=== PATIENT | male | born 1945 | race Asian ===

== ENCOUNTER 2022-08-30 20:22 | Inpatient (IN) ==
--- NOTE | 2022-08-30 20:39 | Emergency Department Note ---
Impression & Plan Hypertension, Hyponatremia ED Provider Note NAME: JOSÉ MIGUEL HORN AGE: 77 SEX: M : 1945 ARRIVES VIA: Ambulance INFORMANT: Patient, ED PROVIDER(S): Asael Barahona MD CHIEF COMPLAINT: High blood pressure, feeling unwell MEDICAL DECISION MAKING: Patient presents with his son at bedside due to concern for feeling generally unwell and was noted to be hypertensive and nauseous. The patient did have blood work completed along with an EKG troponin COVID swab. Patient was ordered IV fluids. Patient had initially declined having any headache but subsequently did and thus a CT of the head was ordered. I did speak with the radiologist who stated this was negative. I did speak the on-call hospitalist service given the patient's hyponatremia and hypertension. The patient was admitted by Dr. Lozoya Prior /Outside records reviewed: None Differential diagnosis: Infection, dehydration, metabolic abnormality, hypo/hyperglycemia, electrolyte disturbance, anemia, hypoxia, cardiac sources, intracerebral event, toxicologic, neurologic, as well as other pathologies. Diagnostics, as interpreted by me: ECG: Sinus, rate of 65, normal intervals normal axis no ST elevations Cardiac monitoring: An order was placed for continuous cardiac monitoring. The monitor shows a rate of 72 with sinus rhythm. Patient was placed on pulse oximetry Medical decision rules: none Imaging studies: See below I informally reviewed the patient's CT of the head noncontrast which showed no obvious ICH HPI: Patient presents due to concern for weakness fatigue and associated nausea. The patient was reportedly returning home from the [facility] as they had just spent the night there were driving home. The patient states that he did not feel well and has associated nausea. They checked his blood pressure and his blood pressure was greater than 200 he did receive his home losartan as well as his Zofran. The patient is a type II diabetic on metformin and his sugar was in the 100s. No reported falls or trauma. The patient denies any headache or neck pain no recent falls or trauma. PAST MEDICAL HISTORY: See Below PAST SURGICAL HISTORY: See Below SOCIAL HISTORY: See Below HOME MEDICATIONS: See Below ALLERGIES: See Below VITALS: See Below PHYSICAL EXAMINATION: GENERAL: NAD, wearing a mask, non-toxic. EYE EXAM: Normal conjunctiva. PERRL, no anisocoria and EOM's grossly intact w/o pain. NECK: Supple, no nuchal rigidity, no adenopathy, non-tender. No signs of meningismus. FROM of the neck with good chin to chest and neck extension. No stridor. LUNGS: Clear to auscultation. Normal chest wall mechanics. HEART: NSR, no MRG. ABDOMEN: Abdomen soft, non-tender, no masses, no rebound or guarding. BACK: No CVA TTP. SKIN: No rashes and no bruising. UPPER EXTREMITIES: Upper extremities are grossly normal. LOWER EXTREMITIES: Grossly normal, no edema. NEURO EXAM: A&O x3, cranial nerves II-XII grossly intact, normal speech, moves all 4 extremities. Past Med/Surg History Medical History Diabetes mellitus NIDDM Hyperlipidemia Hypertension Surgical History History of cataract surgery RT No history of previous surgery Family History Father Diabetes Other No family history of adverse response to anesthesia Social History Smoking Status: Never smoker Second Hand Exposure: No; Do You Dip or Chew Tobacco: No; Hx Alcohol Use: Yes Alcohol type: beer Hx Substance Use: No Preferred Language: Portuguese Communication Ability: Effective Student Admissions Clerk Required: No Beliefs That Will Affect Care: None marital status: Current Living Situation: Spouse and Family Current Living Situation Comment: DAUGHTER AND How many Children do You have: 3 Other Information That Helps Us Care for You: No Feels Safe at Home: Yes Safety Concerns: Feels Safe At This Time Diet: diabetic during the past year weight has: remained stable Assistive Devices: None Allergies Allergies Allergy/AdvReac Type Severity Reaction Status Date / Time No Known Allergies Allergy Verified 08/31/22 00:33 Home Meds Home Medications Medication Instructions Recorded Confirmed metformin 500 mg tablet 500 mg PO QAM 01/13/19 08/31/22 losartan 25 mg tablet 25 mg PO QAM 04/04/21 08/31/22 rosuvastatin 5 mg tablet (Crestor) 5 mg PO QAM 04/04/21 08/31/22 Previous Rx's Medication Instructions Recorded furosemide 20 mg tablet (Lasix) 10 mg PO DAILY #30 tabs 05/02/23 potassium chloride 10 mEq 10 meq PO BID17 30 days #30 tabs 09/01/22 tablet,extended release(part/cryst) Results & Data (ED) Vital Signs Vital Signs - 24 hr 08/30/22 20:24 Temperature 36.8 C Temperature Source Temporal Artery Scan Pulse Rate 68 Respiratory Rate 20 Respiratory Effort / Characteristics Non-Labored Spontaneous Respiratory Depth Normal Blood Pressure 180/94 H Blood Pressure Mean 122 Pulse Oximetry 91 Oxygen Delivery Method Room Air Sepsis Recent Fever Within 48 Hours No Sepsis New/Unexplained Change in Mental Status N/A Sepsis Action Taken by Nursing No Action Required Home Medications Current Medication List: was personally reviewed by me Laboratory Data Attestation: I reviewed the patient's lab results. 09/01/22 07:33 09/01/22 07:33 Lab Results 08/30/22 08/30/22 08/30/22 Range/Units 20:55 20:55 20:55 WBC 8.03 (4.8-10.8) K/ul RBC 5.20 (4.70-6.10) M/uL Hgb 13.2 L (14.0-18.0) g/dl Hct 39.5 L (42.0-52.0) % MCV 76.0 L (80.0-100.0) fL MCH 25.4 (25.0-34.0) pg MCHC 33.4 (32.0-36.0) g/dL RDW Std Deviation 40.0 (36.4-46.3) fL RDW Coeff of Hillary 14.6 H (11.5-14.5) % Plt Count 183 (130-400) K/uL MPV 9.2 L (9.4-12.4) fL Immature Gran % (Auto) 0.4 % Neut % (Auto) 62.5 % Lymph % (Auto) 26.3 % [place] % (Auto) 9.5 % Eos % (Auto) 0.9 % Baso % (Auto) 0.4 % Neut # (Auto) 5.03 (1.40-6.50) K/uL Lymph # (Auto) 2.11 (1.2-3.4) K/uL [place] # (Auto) 0.76 H (0.11-0.59) K/uL Eos # (Auto) 0.07 (0-0.50) K/uL Baso # (Auto) 0.03 (0-0.2) K/uL Immature Gran # (Auto) 0.03 (0.01-0.20) K/uL Sodium 128 L (136-145) mmol/L Potassium 3.7 (3.5-5.1) mmol/L Chloride 91 L (98-107) mmol/L Carbon Dioxide 24 (21-32) mmol/L Anion Gap 13 H (3-11) BUN 12 (6-23) mg/dl Creatinine 0.64 (0.6-1.4) mg/dl Est Cr Clr Drug Dosing Not Reportable Est GFR ( Amer) 111.0 ml/min Est GFR (Non-Af Amer) 95.8 ml/min BUN/Creatinine Ratio 18.8 (10-20) Glucose 157 H (70-99(Fasting)) mg/dl Calcium 9.6 (8.6-10.3) mg/dl Magnesium 1.7 (1.7-2.4) mg/dl Total Bilirubin 1.1 H (0.2-1.0) mg/dl AST 23 (13-39) U/L ALT 27 (7-52) U/L Alkaline Phosphatase 48 (34-104) U/L Troponin I High Sens 5.8 (0-20) pg/ml Total Protein 8.3 (6.0-8.3) gm/dl Albumin 4.5 (3.4-5.0) gm/dl Globulin 3.8 (2.5-4.0) gm/dl Albumin/Globulin Ratio 1.2 (0.9-2) TSH 0.666 (0.300-4.500) uIu/ml Urine Color Urine Appearance (Clear) Urine pH (4.5-7.5) Ur Specific [place] (1.000-1.030) Urine Protein (Negative) Urine Glucose (UA) (Negative) Urine Ketones (Negative) Urine Blood (Negative) Urine Nitrite (Negative) Urine Bilirubin (Negative) Urine Urobilinogen (Negative) Ur Leukocyte Esterase (Negative) Urine WBC (Auto) (0-5) /hpf Urine RBC (Auto) (0-4) /hpf U Hyaline Cast (Auto) (0-5) /lpf U Epithel Cells (Auto) (0-5) /lpf Urine Bacteria (Auto) (Negative) SARS-CoV-2, RNA, NAAT (NEGATIVE) 08/30/22 08/30/22 Range/Units 20:55 21:24 WBC (4.8-10.8) K/ul RBC (4.70-6.10) M/uL Hgb (14.0-18.0) g/dl Hct (42.0-52.0) % MCV (80.0-100.0) fL MCH (25.0-34.0) pg MCHC (32.0-36.0) g/dL RDW Std Deviation (36.4-46.3) fL RDW Coeff of Hillary (11.5-14.5) % Plt Count (130-400) K/uL MPV (9.4-12.4) fL Immature Gran % (Auto) % Neut % (Auto) % Lymph % (Auto) % [place] % (Auto) % Eos % (Auto) % Baso % (Auto) % Neut # (Auto) (1.40-6.50) K/uL Lymph # (Auto) (1.2-3.4) K/uL [place] # (Auto) (0.11-0.59) K/uL Eos # (Auto) (0-0.50) K/uL Baso # (Auto) (0-0.2) K/uL Immature Gran # (Auto) (0.01-0.20) K/uL Sodium (136-145) mmol/L Potassium (3.5-5.1) mmol/L Chloride (98-107) mmol/L Carbon Dioxide (21-32) mmol/L Anion Gap (3-11) BUN (6-23) mg/dl Creatinine (0.6-1.4) mg/dl Est Cr Clr Drug Dosing Est GFR ( Amer) ml/min Est GFR (Non-Af Amer) ml/min BUN/Creatinine Ratio (10-20) Glucose (70-99(Fasting)) mg/dl Calcium (8.6-10.3) mg/dl Magnesium (1.7-2.4) mg/dl Total Bilirubin (0.2-1.0) mg/dl AST (13-39) U/L ALT (7-52) U/L Alkaline Phosphatase (34-104) U/L Troponin I High Sens (0-20) pg/ml Total Protein (6.0-8.3) gm/dl Albumin (3.4-5.0) gm/dl Globulin (2.5-4.0) gm/dl Albumin/Globulin Ratio (0.9-2) TSH (0.300-4.500) uIu/ml Urine Color Yellow Urine Appearance Clear (Clear) Urine pH 7.5 (4.5-7.5) Ur Specific [place] 1.011 (1.000-1.030) Urine Protein Trace H (Negative) Urine Glucose (UA) Negative (Negative) Urine Ketones Negative (Negative) Urine Blood Negative (Negative) Urine Nitrite Negative (Negative) Urine Bilirubin Negative (Negative) Urine Urobilinogen Negative (Negative) Ur Leukocyte Esterase Negative (Negative) Urine WBC (Auto) 0 (0-5) /hpf Urine RBC (Auto) 0-4 (0-4) /hpf U Hyaline Cast (Auto) 0 (0-5) /lpf U Epithel Cells (Auto) 0-5 (0-5) /lpf Urine Bacteria (Auto) Negative (Negative) SARS-CoV-2, RNA, NAAT NEGATIVE (NEGATIVE) Administered Medications Discontinued Medications Acetaminophen (Acetaminophen 325 Mg Tab) 650 mg PO NOW STA Stop: 08/30/22 22:09 Last Admin: 08/30/22 22:53 Dose: 650 mg Documented By: KRISTEL Acetaminophen (Acetaminophen 325 Mg Tab) 650 mg PO Q4H PRN PRN Reason: Pain or Fever Stop: 09/30/22 01:36 Last Admin: 08/31/22 08:36 Dose: 650 mg Documented By: JENNIFER Aspirin (Aspirin 81 Mg Ectab) [facility] [place]: 09/30/22 08:59 Last Admin: 09/01/22 08:51 Dose: 81 mg Documented By: Admin: 08/31/22 08:06 Dose: 81 mg Documented By: JENNIFER Calcium Carbonate (Calcium Carbonate 500 Mg Chewable Tab) 1,500 mg PO NOW STA Stop: 08/30/22 23:00 Last Admin: 08/30/22 23:04 Dose: 1,500 mg Documented By: KANW Furosemide (Furosemide Inj 20 Mg/2 Ml Vial) 20 mg IV ONE ONE Stop: 08/31/22 08:03 Last Admin: 08/31/22 13:11 Dose: Not Given Documented By: JENNIFER Furosemide (Furosemide Inj 20 Mg/2 Ml Vial) 10 mg IV BID17 [facility] Stop: 09/30/22 08:59 Last Admin: 09/01/22 08:51 Dose: 10 mg Documented By: Admin: 08/31/22 16:50 Dose: 10 mg Documented By: Admin: 08/31/22 09:43 Dose: 10 mg Documented By: JENNIFER Sodium Chloride (Nss) 500 mls @ 999 mls/hr IV .Q31M PATRICE Stop: 08/30/22 21:30 Last Infusion: 08/30/22 21:51 Dose: 0 mls/hr Documented By: Admin: 08/30/22 21:20 Dose: 999 mls/hr Documented By: GISELA Magnesium Sulfate/Dextrose (Magnesium Sulfate / D5w) 1 gm in 100 mls @ 50 mls/hr IV ONE ONE Stop: 08/31/22 02:24 Last Infusion: 08/31/22 03:58 Dose: 0 mls/hr Documented By: Admin: 08/31/22 00:37 Dose: 50 mls/hr Documented By: Sodium Chloride (Nss 1000ml) 1,000 mls @ 75 mls/hr IV .[id number] [facility] Stop: 09/30/22 01:36 Last Infusion: 08/31/22 08:38 Dose: 0 mls/hr Documented By: Admin: 08/31/22 03:28 Dose: 75 mls/hr Documented By: DINA Insulin Aspart (Insulin Aspart Per Unit Charge) 0 units SC ACHS PATRICE Stop: 09/30/22 07:29 Last Admin: 09/01/22 12:22 Dose: Not Given Documented By: Admin: 09/01/22 08:46 Dose: Not Given Documented By: Admin: 08/31/22 20:56 Dose: Not Given Documented By: Admin: 08/31/22 16:49 Dose: 2 units Documented By: JENNIFER Co-signed By: MARTA Admin: 08/31/22 12:13 Dose: Not Given Documented By: Admin: 08/31/22 08:05 Dose: 2 units Documented By: JENNIFER Co-signed By: ALN Losartan Potassium (Losartan Potassium 25 Mg Tab) 25 mg PO QAM PATRICE Stop: 09/30/22 08:59 Last Admin: 09/01/22 08:51 Dose: 25 mg Documented By: Admin: 08/31/22 08:06 Dose: 25 mg Documented By: JENNIFER Ondansetron HCl (Ondansetron Inj 2 Mg/Ml 2 Ml Vial) 4 mg IV NOW STA Stop: 08/30/22 21:18 Last Admin: 08/30/22 21:21 Dose: 4 mg Documented By: GISELA Potassium Chloride (Potassium Chloride Crtab 20 Meq Tabcr) 20 meq PO NOW STA Stop: 08/31/22 08:03 Last Admin: 08/31/22 08:37 Dose: 20 meq Documented By: JENNIFER Potassium Chloride (Potassium Chloride Crtab 20 Meq Tabcr) 20 meq PO BID17 [facility] Stop: 09/30/22 09:59 Last Admin: 09/01/22 08:52 Dose: 20 meq Documented By: Admin: 08/31/22 16:50 Dose: 20 meq Documented By: Admin: 08/31/22 11:27 Dose: 20 meq Documented By: JENNIFER Rosuvastatin Calcium (Rosuvastatin Calcium 5 Mg Tab) 5 mg PO HS PATRICE Stop: 09/30/22 08:59 Last Admin: 08/31/22 20:55 Dose: 5 mg Documented By: DINA Torsemide (Torsemide 10 Mg Tab) 5 mg PO QAM PATRICE Stop: 10/01/22 13:59 Last Admin: 09/01/22 13:33 Dose: Not Given Documented By: KACY Imaging Data Radiologist's Impression: Chest X-Ray 08/30/22 20:51 SINGLE VIEW CHEST CLINICAL HISTORY: Generalized weakness. FINDINGS: An AP, portable, upright chest radiograph is compared to study dated 04/09/2021. The heart is enlarged noting atherosclerotic calcification of the thoracic aorta. There is pulmonary vascular congestion. There is bibasilar atelectasis. The lungs and pleural spaces are otherwise clear. No large pleural effusion or pneumothorax is seen. The skeletal structures are osteopenic. The bony thorax is grossly intact. IMPRESSION: Cardiomegaly with pulmonary vascular congestion. ACT 112: Negative or not required by law. Electronically signed by: Rob López M.D. 08/31/2022 7:[address] 08/30/22 22:08 CR Exam(s): CT HEAD Without Contrast History: Reason for exam: headache, htn, nausea/vomiting. Exam: CT HEAD Without Contrast Technique more: CTDI is 36.71 mGy and DLP is 614.27 mGy-cm. Technique more: Automated exposure control was utilized for the study. A dose lowering technique was utilized adhering to the principles of ALARA. Comparison: FINDINGS: No intracranial hemorrhage, abnormal intra- or extra-axial collections or parenchymal lesions are seen. There are involutional changes with prominence of the sulci, basal cisterns and ventricles. Scattered white matter hypoattenuations are present, likely from small vessel disease. The winters-white differentiation is preserved. No evidence of mass effect, midline shift, or edema. The osseous structures are unremarkable. The visualized portions of the paranasal sinuses are clear. IMPRESSION: 1. No acute intracranial process. 2. Involutional changes with small vessel disease. Communications: Call Doctor Stroke Electronically signed by: Selena Velazquez MD 08/30/22 22:47 PM Discharge Plan Visit Data Chief Complaint: Hypertension Stated Complaint: HYPERTENSION ED Provider: Asael Barahona Discharge Problem: Hypertension, Hyponatremia Patient Disposition: Admitted As Inpatient Condition: Good Discharge Instructions Interventions: ED Discharge Assessment Last Done: 08/31/22 01:04
[2022-08-30] MEDS ORDERED: SODIUM CHLORIDE 0.9% 500 ML IV SCH (21:00)
[2022-08-30] MEDS ORDERED: ONDANSETRON INJ 2 MG/ML 2 ML VIAL IV STA (21:17)
[2022-08-30 21:23] LABS: Appearance Urine Clear (Clear); Bacteria Urine Automated Negative (Negative); Bilirubin Urine Negative (Negative); Blood Urine Negative (Negative); Cast Urine Automated 0 /lpf (0-5); Color Urine Yellow; Epithelial Cell Urine Auto 0-5 /lpf (0-5); Glucose Urine UA Negative (Negative); Ketones Urine Negative (Negative); Leukocyte Esterase Urine Negative (Negative); Nitrite Urine Negative (Negative); RBC Urine Automated 0-4 /hpf (0-4); Specific Gravity Urine 1.011 (1.000-1.030); Urobilinogen Urine Negative (Negative); WBC Urine Automated 0 /hpf (0-5); pH Urine 7.5 (4.5-7.5)
[2022-08-30 21:27] LABS: Protein Urine Trace (Negative)
[2022-08-30 21:38] LABS: Basophils # (auto) 0.03 K/uL (0-0.2); Basophils % (auto) 0.4 %; Eosinophils # (auto) 0.07 K/uL (0-0.50); Eosinophils % (auto) 0.9 %; Hematocrit (blood only) 39.5 % (42.0-52.0); Hemoglobin 13.2 g/dl (14.0-18.0); Immature Granulocytes # (auto) 0.03 K/uL (0.01-0.20); Immature Granulocytes % (auto) 0.4 %; Lymphocytes # (auto) 2.11 K/uL (1.2-3.4); Lymphocytes % (auto) 26.3 %; Mean Corpuscular Hemoglobin 25.4 pg (25.0-34.0); Mean Corpuscular Hgb Conc 33.4 g/dL (32.0-36.0); Mean Platelet Volume 9.2 fL (9.4-12.4); Monocytes # (auto) 0.76 K/uL (0.11-0.59); Monocytes % (auto) 9.5 %; Neutrophils # (auto) 5.03 K/uL (1.40-6.50); Neutrophils % (auto) 62.5 %; Platelet Count 183 K/uL (130-400); RDW Coefficient of Variation 14.6 % (11.5-14.5); White Blood Count 8.03 K/ul (4.8-10.8)
[2022-08-30 21:40] LABS: Alanine Aminotransferase 27 U/L (7-52); Albumin Globulin Ratio 1.2 (0.9-2); Albumin Level 4.5 gm/dl (3.4-5.0); Alkaline Phosphatase 48 U/L (34-104); Anion Gap 13 (3-11); Aspartate Aminotransferase 23 U/L (13-39); BUN Creatinine Ratio 18.8 (10-20); Bilirubin,Total 1.1 mg/dl (0.2-1.0); Blood Urea Nitrogen 12 mg/dl (6-23); Calcium 9.6 mg/dl (8.6-10.3); Carbon Dioxide 24 mmol/L (21-32); Chloride 91 mmol/L (98-107); Est GFR (Non-African American) 95.8 ml/min; Globulin 3.8 gm/dl (2.5-4.0); Glucose 157 mg/dl (70-99(Fasting)); Magnesium 1.7 mg/dl (1.7-2.4); Potassium 3.7 mmol/L (3.5-5.1); Sodium 128 mmol/L (136-145); Total Protein 8.3 gm/dl (6.0-8.3)
[2022-08-30] MEDS ORDERED: ACETAMINOPHEN 325 MG TAB PO STA (22:08)
--- NOTE | 2022-08-30 22:48 | CT Scan Report ---
Exam(s): CT HEAD Without Contrast History: Reason for exam: headache, htn, nausea/vomiting. Exam: CT HEAD Without Contrast Technique more: CTDI is 36.71 mGy and DLP is 614.27 mGy-cm. Technique more: Automated exposure control was utilized for the study. A dose lowering technique was utilized adhering to the principles of ALARA. Comparison: FINDINGS: No intracranial hemorrhage, abnormal intra- or extra-axial collections or parenchymal lesions are seen. There are involutional changes with prominence of the sulci, basal cisterns and ventricles. Scattered white matter hypoattenuations are present, likely from small vessel disease. The winters-white differentiation is preserved. No evidence of mass effect, midline shift, or edema. The osseous structures are unremarkable. The visualized portions of the paranasal sinuses are clear. IMPRESSION: 1. No acute intracranial process. 2. Involutional changes with small vessel disease. Communications: Call Doctor Stroke Electronically signed by: Selena Velazquez MD 08/30/22 22:47 PM
[2022-08-30 22:53] LABS: Troponin I High Sensitivity 5.8 pg/ml (0-20)
[2022-08-30] MEDS ORDERED: CALCIUM CARBONATE 500 MG CHEWABLE TAB PO STA (22:59)
[2022-08-31] MEDS ORDERED: MAGNESIUM SULFATE / D5W 1 GM/100 ML BAG IV ONE (00:25)
[2022-08-31] MEDS ORDERED: ACETAMINOPHEN 325 MG TAB PO PRN (01:37)
[2022-08-31] MEDS ORDERED: LABETALOL HCL IV 5 MG/ML 20ML IV PRN (01:37)
[2022-08-31] MEDS ORDERED: DEXTROSE 50% 50 ML SYRINGE IV PRN (01:37)
[2022-08-31] MEDS ORDERED: ONDANSETRON INJ 2 MG/ML 2 ML VIAL IV PRN (01:37)
[2022-08-31] MEDS ORDERED: NITROGLYCERIN SL 0.4 MG/TAB TAB SL PRN (01:37)
[2022-08-31] MEDS ORDERED: CARBOHYDRATES FOR HYPOGLYCEMIA PO PRN (01:37)
[2022-08-31] MEDS ORDERED: GLUCAGON FOR INJ 1 MG VIAL SQ PRN (01:37)
[2022-08-31] MEDS ORDERED: SODIUM CHLORIDE 0.9% 1000ML 1,000 ML IV SCH (01:37)
[2022-08-31] MEDS ORDERED: GLUCOSE 40% GEL 15 GM TUBE PO PRN (01:37)
[2022-08-31] MEDS ORDERED: POLYETHYLENE (MIRALAX) 17 GM PACK PO PRN (01:37)
[2022-08-31] MEDS ORDERED: GLUCOSE 10 TAB/TUBE PO PRN (01:37)
--- NOTE | 2022-08-31 02:57 | History and Physical Report ---
DATE OF ADMISSION: 08/31/2022 CHIEF COMPLAINT: Hypertensive urgency, nausea, hyponatremia. HISTORY OF PRESENT ILLNESS: A 77-year-old male with past medical history significant for diabetes, hypertension, hyperlipidemia, who comes because of elevated blood pressure at home and nausea and dizziness. The family went for [place]. They were driving back today, last one hour the patient drove. After coming home, the patient says he could not get off of the car, feeling very dizzy and felt as falling down and he was dry heaving and nausea. When they checked the blood pressure, it was in 200s. He takes losartan 25 daily, took extra losartan, checked his blood pressure every few minutes but still it was in 180s and was dry heaving and had a small amount of vomiting and feeling dizzy and was brought in here. He was given Zofran, Tylenol, calcium carbonate and currently the patient is feeling very tired, feeling sleepy. Blood pressure is okay here currently, but when he came in it was in the 180s, then at one point it wasin 160s. Son is at bedside. As per the son the patient never felt like this before and never saw his dad like this before. Currently nausea is improved. He has some mild headache. Denies any blurred visions, no runny nose, no sore throat, no cough, no fevers, no chest pain, no shortness of breath. Normal bowel and bladder movements. Apparently the patient was doing fine before this episode. ALLERGIES: No known drug allergies. PAST MEDICAL HISTORY: As mentioned above. PAST SURGICAL HISTORY: Colonoscopy. MEDICATIONS: The patient is on aspirin 81 mg p.o. daily, metformin 500 mg p.o. daily, losartan 25 mg p.o. daily, crestor mg p.o. daily. FAMILY HISTORY: Significant for history of colon cancer. SOCIAL HISTORY: , lives with the family. No smoking. No alcohol. REVIEW OF SYSTEMS: As per HPI. Rest of the review of systems is negative. PHYSICAL EXAMINATION: GENERAL: The patient is of moderate build, not in acute distress. VITAL SIGNS: Temperature 36.8, pulse 78, respiratory rate 18, blood pressure 137/95, oxygen 99% on room air. HEENT: Pupils equal, round and reactive to light. Oral mucosa somewhat moist. NECK: No obvious neck masses seen. No carotid bruits. CARDIOVASCULAR: S1 and S2 heard. Regular rate and rhythm. No murmur, no gallop. RESPIRATORY SYSTEM: Normal AP diameter. No accessory muscle use. No wheezing, no crackles. ABDOMEN: Soft, bowel sounds present, nontender, no distention. CENTRAL NERVOUS SYSTEM: Alert and oriented. Speech is clear. No facial droop. Tongue is midline. hand advertising material distributor is is tight. Can lift his upper extremities, can lift his lower extremity and hold for 5 seconds. Coordination of movements normal. EXTREMITIES: No edema, no erythema. LABORATORY DATA: WBC 8, hemoglobin 13.2, hematocrit 39.5, platelets 183. Sodium 128, potassium 3.7, chloride 91, CO2 of 24, BUN 13, creatinine 0.6, serum glucose 157, calcium 9.6, magnesium 1.7, total bilirubin 1.1, AST 23, ALT 27, alkaline phosphatase 48. Troponin I high sensitivity 5.8. TSH is 0.6. Urinalysis: Trace protein, otherwise negative. SARS-CoV-2 rapid test negative. IMAGING DATA: CT of the head , no acute intracranial process. 2. Involutional changes with small vessel disease.Chest x-ray, possible congestion EKG: Sinus rhythm with PACs at the rate of 65, no acute ST changes seen. ASSESSMENT AND PLAN: This 77-year-old male presents with dizziness, nausea, vomiting and feeling generalized weakness and elevated blood pressure. 1. Hypertensive urgency: Currently, blood pressure is running okay. We will continue his home losartan. We will place him on IV labetalol p.r.n. Closely monitor in tele floor. Get echocardiogram. Follow serial cardiac enzymes. 2. Dizziness and also nausea, vomiting and generalized weakness. CT of the head is okay, but because of the blood pressure was very high, will get an MRI scan and closely monitor in tele floor. Neuro checks. 3. Hyponatremia. Sodium 128. The patient had some vomiting, but not much as per the son. Getting gentle fluids. Follow the repeat labs in the a.m. Urine osmolality, urine sodium and serum osmolality. Consult nephrology in the a.m. 4. Mild elevation of bilirubin. We will follow the repeat labs. 5. Diabetes: Hold metformin. Place on insulin sliding scale. Follow the blood sugars. 6. Hyperlipidemia: Continue statin. Follow lipid profile. 7. Deep venous thrombosis prophylaxis: Sequential compression devices for now. Addendum:Brain MRI Scan No acute findings. Chest xray read as cardiomegaly and pulmonary congestion. Morning labs. Sodium dropped to 124. Stopped fluids and gave a dose of iv lasix 20mg. Will follow echo. Serial BMP ordered. Close monitoring. DISPOSITION: Closely monitor in the tele floor. Level 1 full code. PT/OT prior to discharge. Social service to help with discharge planning. Job ID: [id number] [facility]
--- NOTE | 2022-08-31 04:33 | Magnetic Resonance Report ---
Exam(s): MRI HEAD Without Contrast EXAM: MR Head Without Intravenous Contrast CLINICAL HISTORY: DIZZINESS, NAUSEA HTN URGENCY. TECHNIQUE: Magnetic resonance images of the head/brain without intravenous contrast in multiple planes. COMPARISON: CT head without contrast performed the previous day at 20-28 hours FINDINGS: Brain: The cerebral and cerebellar sulci are mildly prominent consistent with mild brain atrophy. There are a few punctate areas of abnormal T2 signal in the deep cerebral white matter most consistent with mild small vessel ischemic/degenerative changes. No hemorrhage. No diffusion abnormality identified to suggest an evolving ischemic process. Midline shift: The expected midline structures are noted and are unremarkable. Ventricles: Unremarkable. No ventriculomegaly. Bones/joints: Unremarkable. Sinuses: Unremarkable as visualized. No acute sinusitis. Mastoid air cells: Unremarkable as visualized. No mastoid effusion. Orbits: Unremarkable as visualized. Vasculature: The expected vascular flow voids are unremarkable. IMPRESSION: No acute findings in the head/brain. Electronically signed by: Walter Rosaod MD 08/31/22 04:32 AM
[2022-08-31 06:42] LABS: Basophils # (auto) 0.02 K/uL (0-0.2); Basophils % (auto) 0.3 %; Eosinophils # (auto) 0.02 K/uL (0-0.50); Eosinophils % (auto) 0.3 %; Hematocrit (blood only) 36.5 % (42.0-52.0); Hemoglobin 12.7 g/dl (14.0-18.0); Immature Granulocytes # (auto) 0.01 K/uL (0.01-0.20); Immature Granulocytes % (auto) 0.1 %; Lymphocytes # (auto) 1.45 K/uL (1.2-3.4); Lymphocytes % (auto) 20.1 %; Mean Corpuscular Hemoglobin 25.5 pg (25.0-34.0); Mean Corpuscular Hgb Conc 34.8 g/dL (32.0-36.0); Mean Corpuscular Volume 73.1 fL (80.0-100.0); Mean Platelet Volume 9.1 fL (9.4-12.4); Monocytes # (auto) 0.67 K/uL (0.11-0.59); Monocytes % (auto) 9.3 %; Neutrophils # (auto) 5.04 K/uL (1.40-6.50); Neutrophils % (auto) 69.9 %; Platelet Count 181 K/uL (130-400); RDW Coefficient of Variation 14.4 % (11.5-14.5); RDW Standard Deviation 37.7 fL (36.4-46.3); Red Blood Count 4.99 M/uL (4.70-6.10); White Blood Count 7.21 K/ul (4.8-10.8)
[2022-08-31 06:56] LABS: Bilirubin Direct 0.2 mg/dl (0-0.2); Bilirubin,Total 1.3 mg/dl (0.2-1.0); Calcium 8.9 mg/dl (8.6-10.3); Chol HDL Ratio 2.3 (0-5); Creatinine Clr Calc Pharmacy 104.8 ml/min; Est GFR (Non-African American) 103.5 ml/min; Magnesium 1.9 mg/dl (1.7-2.4); Potassium 3.8 mmol/L (3.5-5.1); Total Protein 7.3 gm/dl (6.0-8.3)
[2022-08-31 07:03] LABS: Troponin I High Sensitivity 4.9 pg/ml (0-20)
--- NOTE | 2022-08-31 07:24 | XRay Report ---
SINGLE VIEW CHEST CLINICAL HISTORY: Generalized weakness. FINDINGS: An AP, portable, upright chest radiograph is compared to study dated 04/09/2021. The heart i s enlarged noting atherosclerotic calcification of the thoracic aorta. There is pulmonary vascular co ngestion. There is bibasilar atelectasis. The lungs and pleural spaces are otherwise clear. No large pleural effusion or pneumothorax is seen. The skeletal structures are osteopenic. The bony thorax is grossly intact. IMPRESSION: Cardiomegaly with pulmonary vascular congestion. ACT 112: Negative or not required by law. Electronically signed by: Rob López M.D. 08/31/2022 7:23 AM
[2022-08-31 07:41] LABS: Estimated Average Glucose 146 mg/dl; Hemoglobin A1C 6.7 % (4.5-5.6)
[2022-08-31] MEDS ORDERED: POTASSIUM CHLORIDE CRTAB 20 MEQ TABCR PO STA (08:02)
[2022-08-31] MEDS ORDERED: FUROSEMIDE INJ 20 MG/2 ML VIAL IV ONE (08:02)
[2022-08-31] MEDS: INSULIN ASPART PER UNIT CHARGE SC SCH ×4 (08:05→20:56)
--- NOTE | 2022-08-31 08:05 | Nephrology Consultation ---
Date of Consultation August 31, 2022 Assessment & Plan (1) Hyponatremia: fluid overload based on imaging > hypervolemic hyponatremia. Target sNa tomorrow am is 130 -favor TTE given cardiomegaly/vasc congestion on CXR -start low dose lasix 10 mg IV bid17 -K 20 mEq bid -recheck bmp 1300 (2) Hypertension: goal sbp for now is 130-140s; He had some transient BP elevations in setting of dry heaving at home; no sustained BP elevation here; will continue to observe; ? new diagnosis of HFpEF >> if so would call this HTN urgency -recommend TTE -cont ARB -diuretic as above History of Present Illness Reason for Consultation: hypertensive urgency Requesting Physician: Dr Lozoya Attending Physician: Zahra Mcmullen MD History of Present Illness 77 y/o M whom I'm asked to see for hypertensive urgency was admitted overnight for same in setting of N/V, near fall. also hyponatremic on presentation w/ sNa 128 > 124 this am. PMH includes diabetes, hypertension, hyperlipidemia. He takes losartan 25 mg daily as OP for HTN, no thiazides. Pt developed dizziness and presyncopal symptoms after a long car trip yesterday w/ N and dry heaves. His SBP was in 200s; he took an extra dose of losartan. Came to ER d/t ongoing sx. In the ER he had zofran. SBP was 180 on presentation and has been as low as 108; generally in 150s. He had a liter of NS, then 75 ml/hr, turned off early this am. w/ drop in NS he had 20 mg IV lasix x 1 and 20 mEq po K. no chest pain, palpitations, dyspnea; denies orthopnea; no focal numbness/weakness, mild VILLAFANA bitemporal persistent today, no blurry vision or confusion; no cough, sore throat, F/C. no constipation or diarrhea; no voiding concerns. this am denies further N/dry heaves and tells me he ate full breakfast. Allergies Allergy/AdvReac Type Severity Reaction Status Date / Time No Known Allergies Allergy Verified 08/31/22 00:33 Home Medications Medication Instructions Recorded Confirmed Type metformin 500 mg tablet 500 mg PO QAM 01/13/19 08/31/22 History losartan 25 mg tablet 25 mg PO QAM 04/04/21 08/31/22 History rosuvastatin 5 mg tablet (Crestor) 5 mg PO QAM 04/04/21 08/31/22 History Patient History Medical History (Updated 08/31/22 @ 07:56 by Jessica Demarco MD, PhD) Diabetes mellitus NIDDM Hyperlipidemia Hypertension Surgical History History of cataract surgery RT No history of previous surgery Family History Father Diabetes Other No family history of adverse response to anesthesia Social History Smoking Status: Never smoker Second Hand Exposure: No; Do You Dip or Chew Tobacco: No; Hx Alcohol Use: Yes Alcohol type: beer Hx Substance Use: No Preferred Language: Croatian Communication Ability: Effective Hall Supervisor Required: No Beliefs That Will Affect Care: None marital status: Current Living Situation: Spouse and Family Current Living Situation Comment: DAUGHTER AND How many Children do You have: 3 Other Information That Helps Us Care for You: No Feels Safe at Home: Yes Safety Concerns: Feels Safe At This Time Diet: diabetic during the past year weight has: remained stable Assistive Devices: Denture - Upper, Denture - Lower and Glasses Review of Systems Review of Systems: All systems reviewed & are unremarkable except as noted in HPI & below Physical Exam Constitutional: well developed and well nourished Eyes: EOM intact bilaterally ENMT: Ears: no external ear abnormality Nose: no external nose abnormality Mouth: + dry oral mucous membranes Neck: no nuchal rigidity Respiratory: normal respiratory effort Auscultation: + diminished lung sounds and + crackles (bibasilar and posterior irby about [address]) Cardiovascular: Rate/Rhythm: regular rate and regular rhythm Extremities: no edema Gastrointestinal (Abdomen): Inspection/Auscultation: normal bowel sounds Percussion/Palpation: abdomen soft; abdomen nontender Musculoskeletal: Extremities: strength 5/5 throughout Skin: no rashes, warm and dry Neurologic: amador, fluent speech, no tremor Psychiatric: Orientation: oriented x 3 Results & Data Vital Signs (Past 12 Hours) Vital Signs Temp Pulse Pulse Resp BP BP Pulse Ox 08/31/22 07:31 37.0 C 80 19 153/78 H 95 08/31/22 02:15 36.4 C L 74 18 155/86 H 97 08/31/22 02:14 36.4 C L 74 18 155/86 H 97 08/31/22 01:48 71 08/31/22 01:37 36.5 C 74 18 171/90 H 96 08/31/22 01:04 08/31/22 00:59 71 19 108/67 98 08/31/22 00:42 71 08/30/22 23:00 78 18 137/95 99 08/30/22 20:53 65 08/30/22 20:24 36.8 C 68 20 180/94 H 91 O2 Del Method O2 Flow Rate 08/31/22 07:31 Nasal Cannula 2 08/31/22 02:15 Nasal Cannula 08/31/22 02:14 Nasal Cannula 2 08/31/22 01:48 08/31/22 01:37 Nasal Cannula 2 08/31/22 01:04 Nasal Cannula 2 08/31/22 00:59 Nasal Cannula 2 08/31/22 00:42 08/30/22 23:00 08/30/22 20:53 08/30/22 20:24 Room Air Laboratory Results 08/31/22 06:09 08/31/22 06:09 sOsm 263, uOsm 278 Dirk 107 UA reviewed Diagnostic Findings cxr plm vasc congestion, cardiomegaly Head CT ?concern for stroke > brain MRI wnl
[2022-08-31] MEDS: LOSARTAN POTASSIUM 25 MG TAB PO SCH (08:06)
[2022-08-31] MEDS: ASPIRIN 81 MG ECTAB PO SCH (08:06)
[2022-08-31] MEDS ORDERED: Nursing to Pharmacy Communication SCH (08:30)
[2022-08-31] MEDS ORDERED: POTASSIUM CHLORIDE CRTAB 20 MEQ TABCR PO SCH (09:00)
[2022-08-31] MEDS ORDERED: ROSUVASTATIN CALCIUM 5 MG TAB PO SCH ×2 (09:00→21:00)
[2022-08-31] MEDS: FUROSEMIDE INJ 20 MG/2 ML VIAL IV SCH ×2 (09:43→16:50)
[2022-08-31] MEDS: POTASSIUM CHLORIDE CRTAB 20 MEQ TABCR PO SCH ×2 (11:27→16:50)
[2022-08-31 13:29] LABS: BUN Creatinine Ratio 10.9 (10-20); Calcium 9.1 mg/dl (8.6-10.3); Est GFR (African American) 83.9 ml/min; Est GFR (Non-African American) 72.4 ml/min; Potassium 4.1 mmol/L (3.5-5.1)
--- NOTE | 2022-08-31 14:31 | Hospitalist Progress Note ---
Date of Service August 31, 2022 Assessment & Plan (1) Dizziness: Plan: Admitted with dizzy spells while ambulating following a long car trip and is complicated by hypertensive urgency as below Noted to have low sodium that is also contributing to dizziness and weakness No dizziness at rest Monitor did not show any arrhythmias Echo of the heart was fairly unremarkable (2) Hypertensive urgency: Plan: Blood pressure noted to be at 180/94 at presentation to the emergency room Has been controlled now and is at 129/73 (3) Hyponatremia: Plan: Sodium was 128mls on admission that went down to 124 this morning Appreciate nephrology input and recommendation Likely cause could be hypervolemic hyponatremia Will have Lasix 10 mg IV twice a day Repeat sodium at 12 was 126 -improving t (4) Diabetes mellitus: Plan: Continue current medications (5) Hyperlipidemia: Plan: Continue statin Admission and Anticipated Discharge Date Admission Date: August 31, 2022 Subjective 08/31/2022 The patient was seen and examined in telemetry unit He was brought in with dizzy spells while ambulating after being a long trip yesterday Noted to have high blood pressure in the emergency room with a sodium of 128 No dizziness at rest and denies any other symptoms Review of Systems Review of Systems: All systems reviewed and are unremarkable except as noted below Neurologic: Dizziness with ambulation Physical Exam Physical Exam: Lying in bed without any apparent distress Constitutional: well developed, well nourished and average body habitus; not ill appearing Eyes: PERRL, conjunctivae normal, anicteric sclerae ENMT: external ear and nose normal, oropharynx normal Neck: Movements of the neck did not produce any dizziness Respiratory: no respiratory distress Auscultation: lungs clear to auscultation bilaterally (Minimal crackles on the lateral right base) Cardiovascular: Rate/Rhythm: regular rate and regular rhythm; not tachycardic Heart Sounds: normal S1, normal S2 and + murmur Extremities: + edema (Trace edema bilaterally) Gastrointestinal (Abdomen): Inspection/Auscultation: normal bowel sounds; abdomen not distended Percussion/Palpation: abdomen soft; abdomen nontender Musculoskeletal: No acute arthritis involving any joint Neurologic: Alert, awake and oriented x3. No focal sensory or motor deficit appreciated Psychiatric: A+Ox3, euthymic affect Lymphatic: no cervical or axillary lymphadenopathy Results & Data Results & Data Vital Signs (Past 12 Hours) Vital Signs Temp Pulse Resp BP Pulse Ox O2 Del Method O2 Flow Rate 08/31/22 11:47 36.6 C 77 16 129/73 95 Nasal Cannula 1 08/31/22 07:31 37.0 C 80 19 153/78 H 95 Nasal Cannula 2 Laboratory Results Short CBC 08/30/22 08/31/22 Range/Units 20:55 06:09 WBC 8.03 7.21 (4.8-10.8) K/ul Hgb 13.2 L 12.7 L (14.0-18.0) g/dl Hct 39.5 L 36.5 L (42.0-52.0) % Plt Count 183 181 (130-400) K/uL BMP 08/30/22 08/31/22 08/31/22 20:55 06:09 12:53 Sodium 128 L 124 L 126 L Potassium 3.7 3.8 4.1 Chloride 91 L 92 L 95 L Carbon Dioxide 24 22 24 BUN 12 9 11 Creatinine 0.64 0.53 L 1.01 D Glucose 157 H 120 H 160 H Calcium 9.6 8.9 9.1 Liver Function 08/30/22 08/31/22 Range/Units 20:55 06:09 Total Bilirubin 1.1 H 1.3 H (0.2-1.0) mg/dl Direct Bilirubin 0.2 (0-0.2) mg/dl AST 23 20 (13-39) U/L ALT 27 23 (7-52) U/L Alkaline Phosphatase 48 42 (34-104) U/L Albumin 4.5 4.0 (3.4-5.0) gm/dl Urine 08/30/22 Range/Units 20:55 Urine Color Yellow Urine Appearance Clear (Clear) Urine pH 7.5 (4.5-7.5) Ur Specific [place] 1.011 (1.000-1.030) Urine Protein Trace H (Negative) Urine Glucose (UA) Negative (Negative) Medications Administered Current Inpatient Medications Acetaminophen (Acetaminophen 325 Mg Tab) 650 mg PO Q4H PRN PRN Reason: Pain or Fever Stop: 09/30/22 01:36 Last Admin: 08/31/22 08:36 Dose: 650 mg Aspirin (Aspirin 81 Mg Ectab) 81 mg PO [facility] Stop: 09/30/22 08:59 Last Admin: 08/31/22 08:06 Dose: 81 mg Dextrose (Dextrose 50% 50 Ml Syringe) 25 - 50 ml IV UD PRN; Protocol PRN Reason: Hypoglycemia Protocol Stop: 09/30/22 01:36 Furosemide (Furosemide Inj 20 Mg/2 Ml Vial) 10 mg IV BID17 [facility] Stop: 09/30/22 08:59 Last Admin: 08/31/22 09:43 Dose: 10 mg Glucagon (Glucagon For Inj 1 Mg Vial) 1 mg SQ UD PRN; Protocol PRN Reason: Hypoglycemia Protocol Stop: 09/30/22 01:36 Glucose (Glucose 10 Tab/Tube) 4 - 8 tab PO UD PRN; Protocol PRN Reason: Hypoglycemia Treatment Stop: 09/30/22 01:36 Glucose (Glucose 40% Gel 15 Gm Tube) 15 - 30 gm PO UD PRN; Protocol PRN Reason: Hypoglycemia Protocol Stop: 09/30/22 01:36 Insulin Aspart (Insulin Aspart Per Unit Charge) 0 units SC ACHS [facility] Stop: 09/30/22 07:29 Last Admin: 08/31/22 12:13 Dose: Not Given Labetalol HCl (Labetalol Hcl Iv 5 Mg/Ml 20ml) 10 mg IV Q4H PRN PRN Reason: Hypertension Stop: 09/30/22 01:36 Losartan Potassium (Losartan Potassium 25 Mg Tab) 25 mg PO QAM [facility] Stop: 09/30/22 08:59 Last Admin: 08/31/22 08:06 Dose: 25 mg Miscellaneous (Carbohydrates For Hypoglycemia ) 15 - 30 gm PO UD PRN PRN Reason: Hypoglycemia Protocol Stop: 09/30/22 01:36 Nitroglycerin (Nitroglycerin Sl 0.4 Mg/Tab Tab) 0.4 mg SL UD PRN PRN Reason: Chest Pain Stop: 09/30/22 01:36 Ondansetron HCl (Ondansetron Inj 2 Mg/Ml 2 Ml Vial) 4 mg IV Q6H PRN PRN Reason: Nausea Stop: 09/30/22 01:36 Polyethylene Glycol (Polyethylene (Miralax) 17 Gm Pack) 17 gm PO DAILY PRN PRN Reason: Constipation Stop: 09/30/22 01:36 Potassium Chloride (Potassium Chloride Crtab 20 Meq Tabcr) 20 meq PO BID17 [facility] Stop: 09/30/22 09:59 Last Admin: 08/31/22 11:27 Dose: 20 meq Rosuvastatin Calcium (Rosuvastatin Calcium 5 Mg Tab) 5 mg PO [facility] Stop: 09/30/22 08:59
[2022-09-01 07:27] LABS: Phosphorus 2.9 mg/dl (2.5-4.9)
[2022-09-01 07:52] LABS: Basophils # (auto) 0.03 K/uL (0-0.2); Basophils % (auto) 0.6 %; Eosinophils # (auto) 0.15 K/uL (0-0.50); Hematocrit (blood only) 40.4 % (42.0-52.0); Hemoglobin 13.8 g/dl (14.0-18.0); Immature Granulocytes # (auto) 0.01 K/uL (0.01-0.20); Immature Granulocytes % (auto) 0.2 %; Lymphocytes # (auto) 1.76 K/uL (1.2-3.4); Lymphocytes % (auto) 34.7 %; Mean Corpuscular Hemoglobin 25.4 pg (25.0-34.0); Mean Corpuscular Hgb Conc 34.2 g/dL (32.0-36.0); Mean Corpuscular Volume 74.4 fL (80.0-100.0); Mean Platelet Volume 8.7 fL (9.4-12.4); Monocytes # (auto) 0.64 K/uL (0.11-0.59); Monocytes % (auto) 12.6 %; Neutrophils # (auto) 2.48 K/uL (1.40-6.50); Neutrophils % (auto) 48.9 %; Platelet Count 198 K/uL (130-400); RDW Coefficient of Variation 14.9 % (11.5-14.5); RDW Standard Deviation 39.5 fL (36.4-46.3); Red Blood Count 5.43 M/uL (4.70-6.10); White Blood Count 5.07 K/ul (4.8-10.8)
[2022-09-01 08:04] LABS: BUN Creatinine Ratio 23.3 (10-20); Creatinine Clr Calc Pharmacy 76.1 ml/min; Est GFR (African American) 105.2 ml/min; Est GFR (Non-African American) 90.7 ml/min; Magnesium 2.1 mg/dl (1.7-2.4); Potassium 4.5 mmol/L (3.5-5.1)
[2022-09-01] MEDS: INSULIN ASPART PER UNIT CHARGE SC SCH ×2 (08:46→12:22)
[2022-09-01] MEDS: LOSARTAN POTASSIUM 25 MG TAB PO SCH (08:51)
[2022-09-01] MEDS: FUROSEMIDE INJ 20 MG/2 ML VIAL IV SCH (08:51)
[2022-09-01] MEDS: ASPIRIN 81 MG ECTAB PO SCH (08:51)
[2022-09-01] MEDS: POTASSIUM CHLORIDE CRTAB 20 MEQ TABCR PO SCH (08:52)
--- NOTE | 2022-09-01 09:12 | Nephrology Progress Note ---
Date of Service September 01, 2022 Assessment & Plan (1) Hyponatremia: Plan: fluid overload based on imaging > hypervolemic hyponatremia. For possible discharge today Target sNa tomorrow am is wnl. TTE reassuring but would still consider this diastolic heart faliure given pulmonary vascular congestion on presentation -I had changed him to torsemide 5 mg daily. However with pending discharge and with the knowledge that his blood pressures at home run typically in the 120s to 130s systolic per his son who is a physician, favor Lasix 10 mg daily in lieu of torsemide at discharge to start tomorrow -lowered K to 10 mEq bid -liberalized fluid limit 1.8L -daily bmp ok for now; no need for q4h (2) Heart failure with preserved ejection fraction: Plan: goal sbp for now is 120-130s; He had some transient BP elevations in setting of dry heaving at home; no sustained BP elevation here; will continue to observe; new diagnosis of HFpEF w/ uncontrolled HTN, volume overload -cont ARB -diuretic as above -would defer beta wan for now given adequate BP control and pt c/o dizziness Nephrology discharge recommendations Lasix 10 mg daily Potassium 10 mill equivalents twice daily and high potassium diet Fluid limit 1.8 L Recommend weekly basic metabolic panel to be ordered by nephrology nurse at hospital discharge Bring log of home blood pressures and bring home blood pressure cuff to n ephrology follow-up appointment please Patient to follow-up with me in CKD clinic in about 2 weeks for hospital discharge appointment Admission and Anticipated Discharge Date Admission Date: August 31, 2022 Subjective no interval events; ate full breakfast and is eating all meals. No further nausea vomiting or dry heaves. No dizziness. Voiding without issue. Denies shortness of breath. Review of Systems Review of Systems: All systems reviewed & are unremarkable except as noted in Subjective Physical Exam Constitutional: well developed and well nourished Eyes: EOM intact bilaterally ENMT: Ears: no external ear abnormality Nose: no external nose abnormality Mouth: + dry oral mucous membranes Neck: no nuchal rigidity Respiratory: normal respiratory effort Auscultation: + diminished lung sounds and + crackles (bibasilar but not extending upward as they did yesterday) Cardiovascular: Rate/Rhythm: regular rate and regular rhythm Extremities: no edema Gastrointestinal (Abdomen): Inspection/Auscultation: normal bowel sounds Percussion/Palpation: abdomen soft; abdomen nontender Musculoskeletal: Extremities: strength 5/5 throughout Skin: no rashes, warm and dry Psychiatric: Orientation: oriented x 3 Results & Data Vital Signs (Past 12 Hours) Vital Signs Temp Pulse Pulse Resp BP Pulse Ox O2 Del Method 09/01/22 07:00 69 09/01/22 07:00 36.8 C 63 14 128/77 97 Room Air 09/01/22 02:00 36.7 C 70 23 137/83 97 Nasal Cannula 08/31/22 22:00 76 08/31/22 23:00 36.6 C 69 17 129/74 98 Nasal Cannula O2 Flow Rate 09/01/22 07:00 09/01/22 07:00 09/01/22 02:00 1 08/31/22 22:00 08/31/22 23:00 1 Laboratory Results 09/01/22 07:33 09/01/22 07:33 Diagnostic Findings TTE unremarkable except for mild/grade I diastolic dysfunction
--- NOTE | 2022-09-01 10:53 | Electrocardiogram Report ---
Test Reason : Blood Pressure : / mmHG Vent. Rate : 065 BPM Atrial Rate : 065 BPM P-R Int : 194 ms QRS Dur : 102 ms QT Int : 406 ms P-R-T Axes : 071 -08 045 degrees QTc Int : 422 ms Sinus rhythm with Premature atrial complexes Otherwise normal ECG No previous ECGs available Confirmed by Jaime Velásquez ([id number]) on 09/01/2022 10:53:19 AM Referred By: REFERRED SELF Confirmed By:Jaime Velásquez
--- NOTE | 2022-09-01 11:43 | Cardiology Consultation ---
Date of Consultation September 01, 2022 Assessment & Plan (1) Hypertensive urgency: (2) Hyponatremia: Plan Patient admitted for dizziness with hypertensive urgency and worsening of his chronic mild hyponatremia. He was found to also have mild pulm vascular congestion on his xray but denied symptoms of fluid overload at the time His sodium levels trended downward initially and then improved with low dose diuretics. Nephrology followed closely and felt hyponatremia was dilutional in setting of hypervolemia. BP also improved with home dose losartan 25 mg daily and diuretic therapy. His echo reveals normal LVEF and no significant valvular disease with only mild grade I diastolic dysfunction, unchanged from prior echo in 2020. Its possible patient had acute pulm edema/volume overload in setting of hypertensive urgency after eating higher sodium foods and excessive intake of water prior to arrival. He has no prior history of CHF event and likely this episode is multifactorial. Discussed with patient/son. Nephrology recommending low dose diuretic on discharge. Would recommend diuretic only several days per week and monitor BP and outpatient labs. Fluid restriction of about 1500 ml (or about 50-60 ounces) per day recommended. Low sodium diet also encouraged. Continue losartan 25 mg daily and titrate dose if needed. Patient and son agreeable to the plan. All questions answered. Stable from cardiac perspective to be discharged today. Case discussed with Dr. Carlos I spent a total of 45 minutes on the date of service in preparation, delivery, and documentation of the care provided to this patient, excluding any time spent in the performance of separately billed services. Chani Spear PA-C Department of Cardiology, [facility] This chart was completed in part utilizing Speech Voice Recognition Software. Grammatical errors, random word insertions, prounoun errors, and incomplete sentences are an occasional consequence of this system due to software limitations, ambient noise, and hardware issues. Any formal questions or concerns about the content, text, or information contained within the body of this dictation should be directly addressed to the provider for clarification. Supervising Physician Co-Signing Physician Notes Supervising Physician Attestation: I have personally performed a history and physical examination on the patient. I agree with the physician assistant clinical director's findings and plan as documented with the following additions. Subjective: Patient without acute complaint. Presenting symptoms of dizziness, nauseousness have resolved. Never had subjective shortness of breath. Blood pressure well controlled, most recent measurement 107/70. Exam: Cardiovascular: Regular rhythm, no murmurs rubs or gallops, no edema Data: A repeat chest x-ray, formal PA and lateral study was performed in the radiology department per my request. Image reviewed independently, radiology report reviewed. The cardiac silhouette is top normal in size, interval resolution of the previously noted pulmonary vascular congestion noted. Assessment and Plan: Hypertension, transient volume overload, grade 1 diastolic dysfunction, hyponatremia -Agree with discharge on losartan 25 mg daily, low-dose furosemide. -Blood pressure should be monitored as an outpatient. -Likely does not need cardiology follow-up as an outpatient unless further concerns arise. Tad Carlos, DO History of Present Illness Reason for Consultation: Diastolic HF; Hypertensive urgency Requesting Physician: Dr. Mcmullen Attending Physician: Dr. Carlos History of Present Illness Patient is a 77 year old male admitted for weakness, dizziness in setting of hyponatremia and hypertensive urgency. Head CT and Brain MRI unremarkable. BP was elevated initially. Treated with one dose labetolol. Due to pulm vascular congestion, treated with IV lasix. Initially sodium levels dropped but then improved with ongoing diuresis. BP also improved on home dose losartan. Son at bedside, who is a physician. Prior to events, patient had traveled to [place] and had several meals out, possibly higher in sodium? He admits to alot of water intake throughout the day. He reports compliance with medications. Echo on admission was stable with normal LVEF, only grade I diastolic dysfunction and no significant valvular disease. Chart reviewed and history includes: 1. Hypertension 2. Dyslipidemia 3. DM 4. chronic hyponatremia Patient denies history of cardiac problems including history of CHF, arrhythmia, CAD/AZ. At time of cardio consult patient eating lunch and resting comfortably. BP controlled this morning. Patient denies symptoms of chest pain, dyspnea, edema. No cough or fever or chills. No hypoxia. No recent weight gain. He denies recent symptoms of CP or SOB. He is active at home and walks several miles per day without recent changes. Allergies Allergy/AdvReac Type Severity Reaction Status Date / Time No Known Allergies Allergy Verified 08/31/22 00:33 Home Medications Medication Instructions Recorded Confirmed Type metformin 500 mg tablet 500 mg PO QAM 01/13/19 08/31/22 History losartan 25 mg tablet 25 mg PO QAM 12/03/21 05/01/23 History rosuvastatin 5 mg tablet (Crestor) 5 mg PO QAM 04/04/21 08/31/22 History furosemide 20 mg tablet (Lasix) 10 mg PO DAILY #30 tabs 09/01/22 Rx potassium chloride 10 mEq 10 meq PO BID17 30 days #30 tabs 09/01/22 Rx tablet,extended release(part/cryst) Patient History Medical History (Updated 09/01/22 @ 09:14 by Jessica Demarco MD, PhD) Diabetes mellitus NIDDM Hyperlipidemia Hypertension Surgical History History of cataract surgery RT No history of previous surgery Family History Father Diabetes Other No family history of adverse response to anesthesia Social History Smoking Status: Never smoker Second Hand Exposure: No; Do You Dip or Chew Tobacco: No; Hx Alcohol Use: Yes Alcohol type: beer Hx Substance Use: No Preferred Language: Portuguese Communication Ability: Effective Pneumatic Hoist Operator Required: No Beliefs That Will Affect Care: None marital status: Current Living Situation: Spouse and Family Current Living Situation Comment: DAUGHTER AND How many Children do You have: 3 Other Information That Helps Us Care for You: No Feels Safe at Home: Yes Safety Concerns: Feels Safe At This Time Diet: diabetic during the past year weight has: remained stable Assistive Devices: None Review of Systems Review of Systems: All systems reviewed & are unremarkable except as noted in HPI & below Physical Exam Constitutional: WD/WN, vitals as above well developed; no acute distress Neck: trachea midline, no thyromegaly Respiratory: normal respiratory effort, lungs clear to auscultation Cardiovascular: Rate/Rhythm: regular rate and regular rhythm Heart Sounds: no murmur Vessels: no JVD Extremities: no edema Gastrointestinal (Abdomen): normal bowel sounds, soft, nontender, no hepatosplenomegaly Musculoskeletal: no cyanosis or clubbing, extremities motor strength 5/5 Neurologic: PERRL, EOMI, accommodation nl, no face palsy, no dysarthria Results & Data Vital Signs (Past 12 Hours) Vital Signs Temp Pulse Pulse Resp BP Pulse Ox Pulse Ox 09/01/22 11:14 36.5 C 82 19 107/70 93 09/01/22 10:49 94 09/01/22 07:00 69 09/01/22 07:00 36.8 C 63 14 128/77 97 09/01/22 02:00 36.7 C 70 23 137/83 97 O2 Del Method O2 Flow Rate 09/01/22 11:14 Room Air 09/01/22 10:49 09/01/22 07:00 09/01/22 07:00 Room Air 09/01/22 02:00 Nasal Cannula 1 Laboratory Results CBC 09/01/22 09/01/22 Range/Units 06:11 07:33 WBC Cancelled 5.07 RBC Cancelled 5.43 Hgb Cancelled 13.8 L Hct Cancelled 40.4 L Plt Count Cancelled 198 Neut # (Auto) Cancelled 2.48 Lymph # (Auto) Cancelled 1.76 [place] # (Auto) Cancelled 0.64 H Eos # (Auto) Cancelled 0.15 Baso # (Auto) Cancelled 0.03 Comprehensive Metabolic Panel 08/31/22 09/01/22 Range/Units 12:53 07:33 Sodium 126 L 131 L (136-145) mmol/L Potassium 4.1 4.5 (3.5-5.1) mmol/L Chloride 95 L 98 (98-107) mmol/L Carbon Dioxide 24 27 (21-32) mmol/L BUN 11 17 (6-23) mg/dl Creatinine 1.01 D 0.73 (0.6-1.4) mg/dl Glucose 160 H 121 H (70-99(Fasting)) mg/dl Calcium 9.1 9.0 (8.6-10.3) mg/dl Intake and Output 08/31/22 09/01/22 09/01/22 22:59 06:59 14:59 Output Total 900 / 3425 375 / 3425 Balance -900 / -2737.5 -375 / -2737.5 Output: Urine 900 / 3425 375 / 3425 Other: Weight 61.8 kg Weight Measurement Method Built in [facility] Diagnostic Findings Telemetry reviewed: NSR with HR's ranging 70-90 bpm. no arrhythmias EKG on admission reviewed: NSR with PAC Normal EKG Chest xray on admission; IMPRESSION: Cardiomegaly with pulmonary vascular congestion. echo results reviewed dated 08/31/22: Normal LV wall thickness LV wall motion is normal LV systolic function is normal EF 60-65% RV is normal in size and function Aortic valve scerlosis mild, without significant aortic valvular stenosis No pulm hypertension Grade I diastolic dysfunction No change from study in 2020 in [facility] Outside echo results reviewed from 2020: Interpretation Summary The examination is adequate to evaluate the referral indication. The left ventricular wall motion is normal. The qualitative LV ejection fraction is 60-64% (normal). Mild aortic valve sclerosis is present. Aortic stenosis is absent. Trace aortic valve regurgitation is present. Trace mitral regurgitation is present. The left ventricular diastolic function is mildly abnormal (grade I). There are no prior studies available for direct comparison.
--- NOTE | 2022-09-01 12:17 | Hospitalist Progress Note ---
Date of Service September 01, 2022 Assessment & Plan (1) Dizziness: Plan: Admitted with dizzy spells while ambulating following a long car trip and is complicated by hypertensive urgency as below Noted to have low sodium that is also contributing to dizziness and weakness No dizziness at rest Monitor did not show any arrhythmias Echo of the heart was fairly unremarkable-grade 1 diastolic failure No more dizziness and has been ambulating without any difficulties Like to be discharged home today Heart failure with preserved EF Possible diastolic CHF Given pulmonary congestion, hypertension urgency and grade 1 diastolic dysfunction as an echo Has been started with small dose of Lasix, LEE inhibitor Cardiology has been consulted for further recommendation Appreciate cardiology input and recommendation (2) Hypertensive urgency: Plan: Blood pressure noted to be at 180/94 at presentation to the emergency room Has been controlled now and is at 129/73 (3) Hyponatremia: Plan: Sodium was 128mls on admission that went down to 124 this morning Appreciate nephrology input and recommendation Likely cause could be hypervolemic hyponatremia Will have Lasix 10 mg IV twice a day Repeat sodium at 12 was 126 -improving Sodium level is 131 as of 09-22 (4) Diabetes mellitus: Plan: Continue current medications (5) Hyperlipidemia: Plan: Continue statin Plan Likely discharge this afternoon Admission and Anticipated Discharge Date Admission Date: August 31, 2022 Subjective 08/31/2022 The patient was seen and examined in telemetry unit He was brought in with dizzy spells while ambulating after being a long trip yesterday Noted to have high blood pressure in the emergency room with a sodium of 128 No dizziness at rest and denies any other symptoms 09/01/2022 The patient was seen and examined in telemetry unit He has been feeling much better and denies any symptoms He has been ambulating in the room without any dizziness Most likely he will be discharged home this afternoon Review of Systems Review of Systems: All systems reviewed and are unremarkable except as noted below Neurologic: Dizziness with ambulation Physical Exam Physical Exam: Lying in bed without any apparent distress Constitutional: well developed, well nourished and average body habitus; not ill appearing Eyes: PERRL, conjunctivae normal, anicteric sclerae ENMT: external ear and nose normal, oropharynx normal Respiratory: no respiratory distress Auscultation: lungs clear to auscultation bilaterally (Minimal crackles on the lateral right base) Cardiovascular: Rate/Rhythm: regular rate and regular rhythm; not tachycardic Heart Sounds: normal S1, normal S2 and + murmur Extremities: + edema (Trace edema bilaterally) Gastrointestinal (Abdomen): Inspection/Auscultation: normal bowel sounds; abdomen not distended Percussion/Palpation: abdomen soft; abdomen nontender Musculoskeletal: No acute arthritis involving any joint Neurologic: Alert, awake and oriented x3. No focal sensory or no motor deficit appreciated Psychiatric: A+Ox3, euthymic affect Lymphatic: no cervical or axillary lymphadenopathy Results & Data Results & Data Vital Signs (Past 12 Hours) Vital Signs Temp Pulse Pulse Resp BP Pulse Ox Pulse Ox 09/01/22 11:14 36.5 C 82 19 107/70 93 09/01/22 10:49 94 09/01/22 07:00 69 09/01/22 07:00 36.8 C 63 14 128/77 97 09/01/22 02:00 36.7 C 70 23 137/83 97 O2 Del Method O2 Flow Rate 09/01/22 11:14 Room Air 09/01/22 10:49 09/01/22 07:00 09/01/22 07:00 Room Air 09/01/22 02:00 Nasal Cannula 1 Laboratory Results Short CBC 09/01/22 09/01/22 Range/Units 06:11 07:33 WBC Cancelled 5.07 Hgb Cancelled 13.8 L Hct Cancelled 40.4 L Plt Count Cancelled 198 BMP 08/31/22 09/01/22 12:53 07:33 Sodium 126 L 131 L Potassium 4.1 4.5 Chloride 95 L 98 Carbon Dioxide 24 27 BUN 11 17 Creatinine 1.01 D 0.73 Glucose 160 H 121 H Calcium 9.1 9.0 Medications Administered Current Inpatient Medications Acetaminophen (Acetaminophen 325 Mg Tab) 650 mg PO Q4H PRN PRN Reason: Pain or Fever Stop: 09/30/22 01:36 Last Admin: 08/31/22 08:36 Dose: 650 mg Aspirin (Aspirin 81 Mg Ectab) [facility] Stop: 09/30/22 08:59 Last Admin: 09/01/22 08:51 Dose: 81 mg Dextrose (Dextrose 50% 50 Ml Syringe) 25 - 50 ml IV UD PRN; Protocol PRN Reason: Hypoglycemia Protocol Stop: 09/30/22 01:36 Glucagon (Glucagon For Inj 1 Mg Vial) 1 mg SQ UD PRN; Protocol PRN Reason: Hypoglycemia Protocol Stop: 09/30/22 01:36 Glucose (Glucose 10 Tab/Tube) 4 - 8 tab PO UD PRN; Protocol PRN Reason: Hypoglycemia Treatment Stop: 09/30/22 01:36 Glucose (Glucose 40% Gel 15 Gm Tube) 15 - 30 gm PO UD PRN; Protocol PRN Reason: Hypoglycemia Protocol Stop: 09/30/22 01:36 Insulin Aspart (Insulin Aspart Per Unit Charge) 0 units SC ACHS [facility] Stop: 09/30/22 07:29 Last Admin: 09/01/22 08:46 Dose: Not Given Labetalol HCl (Labetalol Hcl Iv 5 Mg/Ml 20ml) 10 mg IV Q4H PRN PRN Reason: Hypertension Stop: 09/30/22 01:36 Losartan Potassium (Losartan Potassium 25 Mg Tab) 25 mg PO QAM [facility] Stop: 09/30/22 08:59 Last Admin: 09/01/22 08:51 Dose: 25 mg Miscellaneous (Carbohydrates For Hypoglycemia ) 15 - 30 gm PO UD PRN PRN Reason: Hypoglycemia Protocol Stop: 09/30/22 01:36 Nitroglycerin (Nitroglycerin Sl 0.4 Mg/Tab Tab) 0.4 mg SL UD PRN PRN Reason: Chest Pain Stop: 09/30/22 01:36 Ondansetron HCl (Ondansetron Inj 2 Mg/Ml 2 Ml Vial) 4 mg IV Q6H PRN PRN Reason: Nausea Stop: 09/30/22 01:36 Polyethylene Glycol (Polyethylene (Miralax) 17 Gm Pack) 17 gm PO DAILY PRN PRN Reason: Constipation Stop: 09/30/22 01:36 Potassium Chloride (Potassium Chloride 10 Meq Tabcr) 10 meq PO BID17 [facility] Stop: 10/01/22 16:59 Rosuvastatin Calcium (Rosuvastatin Calcium 5 Mg Tab) 5 mg PO HS [facility] Stop: 09/30/22 08:59 Last Admin: 08/31/22 20:55 Dose: 5 mg Torsemide (Torsemide 10 Mg Tab) 5 mg PO QAM [facility] Stop: 10/01/22 13:59
[2022-09-01] MEDS ORDERED: TORSEMIDE 10 MG TAB PO SCH (14:00)
--- NOTE | 2022-09-01 16:33 | XRay Report ---
XR chest 2V PA/lateral HISTORY: follow up pulmonary edema COMPARISON: Chest 08/30/2022. FINDINGS: No pneumothorax. No pleural effusions. The cardiac silhouette is top normal in size. There is a mildly tortuous thoracic aorta. There are calcifications within the aortic knob. The pulmonary v asculature congestion has improved/resolved in the interval. There is mild interstitial thickening re maining at the left lung base. Otherwise, no new focal lung consolidations identified. IMPRESSION: Interval improvement/resolution of the pulmonary vascular congestion. ACT 112: Negative or not required by law. Electronically signed by: Narciso Parks M.D. 09/01/2022 4:32 PM
[2022-09-01] MEDS ORDERED: POTASSIUM CHLORIDE 10 MEQ TABCR PO SCH (17:00)
--- NOTE | 2022-09-02 12:44 | Discharge Summary ---
Date of Service September 01, 2022 Admission HPI Per Admitting Provider DICTATED BY:Ronan Lozoya MD DATE OF ADMISSION: 08/31/2022 CHIEF COMPLAINT: Hypertensive urgency, nausea, hyponatremia. HISTORY OF PRESENT ILLNESS: A 77-year-old male with past medical history significant for diabetes, hypertension, hyperlipidemia, who comes because of elevated blood pressure at home and nausea and dizziness. The family went for [place]. They were driving back today, last one hour the patient drove. After coming home, the patient says he could not get off of the car, feeling very dizzy and felt as falling down and he was dry heaving and nausea. When they checked the blood pressure, it was in 200s. He takes losartan 25 daily, took extra losartan, checked his blood pressure every few minutes but still it was in 180s and was dry heaving and had a small amount of vomiting and feeling dizzy and was brought in here. He was given Zofran, Tylenol, calcium carbonate and currently the patient is feeling very tired, feeling sleepy. Blood pressure is okay here currently, but when he came in it was in the 180s, then at one point it wasin 160s. Son is at bedside. As per the son the patient never felt like this before and never saw his dad like this before. Currently nausea is improved. He has some mild headache. Denies any blurred visions, no runny nose, no sore throat, no cough, no fevers, no chest pain, no shortness of breath. Normal bowel and bladder movements. Apparently the patient was doing fine before this episode. Admission Exam Per Admitting Provider GENERAL: The patient is of moderate build, not in acute distress. VITAL SIGNS: Temperature 36.8, pulse 78, respiratory rate 18, blood pressure 137/95, oxygen 99% on room air. HEENT: Pupils equal, round and reactive to light. Oral mucosa somewhat moist. NECK: No obvious neck masses seen. No carotid bruits. CARDIOVASCULAR: S1 and S2 heard. Regular rate and rhythm. No murmur, no gallop. RESPIRATORY SYSTEM: Normal AP diameter. No accessory muscle use. No wheezing, no crackles. ABDOMEN: Soft, bowel sounds present, nontender, no distention. CENTRAL NERVOUS SYSTEM: Alert and oriented. Speech is clear. No facial droop. Tongue is midline. 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 Can lift his upper extremities, can lift his lower extremity and hold for 5 seconds. Coordination of movements normal. EXTREMITIES: No edema, no erythema. Principal Diagnosis Hypertensive urgency, dizziness, hyponatremia, heart failure with preserved EF Discharge Exam Lying in bed without any apparent distress Constitutional well developed, well nourished and average body habitus; not ill appearing Eyes PERRL, conjunctivae normal, anicteric sclerae ENMT external ear and nose normal, oropharynx normal Respiratory no respiratory distress Auscultation: lungs clear to auscultation bilaterally (Minimal crackles on the lateral right base) Cardiovascular Rate/Rhythm: regular rate and regular rhythm; not tachycardic Heart Sounds: normal S1, normal S2 and + murmur Extremities: + edema (Trace edema bilaterally) Gastrointestinal (Abdomen) Inspection/Auscultation: normal bowel sounds; abdomen not distended Percussion/Palpation: abdomen soft; abdomen nontender Psychiatric A+Ox3, euthymic affect Lymphatic no cervical or axillary lymphadenopathy Discharge Data Allergies Allergy/AdvReac Type Severity Reaction Status Date / Time No Known Allergies Allergy Verified 08/31/22 00:33 Consultations 08/30/22 22:59 ED Decision to Admit Stat 08/31/22 08:00 Consult Nephrology Routine 09/01/22 10:30 Consult Cardiology Routine Ordered Studies 08/30/22 22:08 CT head/brain wo con Stat 08/31/22 01:37 MRI Brain [MR brain wo con] Urgent Hospital Course (1) Dizziness: Admitted with dizzy spells while ambulating following a long car trip and is complicated by hypertensive urgency as below Noted to have low sodium that is also contributing to dizziness and weakness No dizziness at rest Monitor did not show any arrhythmias Echo of the heart was fairly unremarkable-grade 1 diastolic failure No more dizziness and has been ambulating without any difficulties Like to be discharged home today Heart failure with preserved EF Possible diastolic CHF Given pulmonary congestion, hypertension urgency and grade 1 diastolic dysfunction as an echo Has been started with small dose of Lasix, LEE inhibitor Cardiology has been consulted for further recommendation Appreciate cardiology input and recommendation (2) Hypertensive urgency: Blood pressure noted to be at 180/94 at presentation to the emergency room Has been controlled now and is at 129/73 (3) Hyponatremia: Sodium was 128mls on admission that went down to 124 this morning Appreciate nephrology input and recommendation Likely cause could be hypervolemic hyponatremia Will have Lasix 10 mg IV twice a day Repeat sodium at 12 was 126 -improving Sodium level is 131 as of 09-22 (4) Diabetes mellitus: Continue current medications (5) Hyperlipidemia: Continue statin Plan Likely discharge this afternoon Total Time Total Time Spent Total Time Spent (In Minutes): 35 minutes Discharge Plan Discharge Items Patient Disposition: Home - Self-Care Reason For Visit: HTN URGENCY Discharge Diagnosis: Hypertensive urgency, dizziness, hyponatremia, heart failure with preserved EF Condition on Discharge: Good Activity: Resume your previous activity Non-emergency contact: Primary Care Provider Call non-emergency contact if: you have any medication questions and your symptoms worsen Follow-up/Referrals: Jessica Demarco MD, PhD [Physician] - (Date & Time 12/31/2022 7:00 AM Provider Jessica Demarco MD Department Nephrology, [facility] I have made the Nephrology office aware that it is recommended you be seen in [address] Demarco. They will call you with a closer appointment. ) Tayler Souza MD [Primary Care Provider] - (Date & Time 09/08/2022 11:00 AM Provider Tayler Souza MD Department General Internal Medicine [facility] ) Diet: Heart Healthy and Low Sodium (2gm) Fluids: 1500ml (6 cups) Addtl Attending Provider Instructions: Please take precautions to avoid falls Please take your medications as advised Please give appointment with your healthcare providers Pending Studies at Discharge: No Stand-Alone Forms: My [facility] [employer], Smoking Cessation Medications and DC Order Prescriptions: New potassium chloride 10 mEq Tablet,Er Particles/Crystals 10 meq PO BID17 30 Days Qty: 30 0RF furosemide [Lasix] 20 mg tablet 10 mg PO DAILY Qty: 30 0RF Continued metformin 500 mg tablet 500 mg PO QAM losartan 25 mg Tablet 25 mg PO QAM rosuvastatin [Crestor] 5 mg Tablet 5 mg PO QAM Discharge Orders: Discharge Order (Routine); Ordered 09/01/22 Ordered By: Zahra Richards/Other Patient Handouts: Managing Type 2 Diabetes Admission Data Admit Date/Time: 08/31/22 00:02 Attending Provider: Zahra Mcmullen Admit Provider: Ronan Lozoya Primary Care Provider: Tayler Souza Other Providers: Ronan Lozoya ; Jessica Demarco ; Tad Carlos Other Interventions: Discharge Summary Assessment (RN) Last Done: 09/01/22 15:46
== END 2022-09-01 16:13 | disposition home or self-care (01) | DRG 305 ==
LOC: ED 20:22 → 2S 08-31 00:02